=== PATIENT | female | born 1990 | race Hispanic/Latino ===

== ENCOUNTER → 2018-11-06 | Outpatient (CLI) | payer MEDICAID | END | disposition home or self-care (01) | LOC: OIH 09:30 | PROVIDERS: ATTEND Internal Medicine | DX: R76.11 Nonspecific reaction to tuberculin skin test without active tuberculosis (principal) | CPT/HCPCS: 71046 ==

== ENCOUNTER → 2020-05-30 | Outpatient (CLI) | payer MEDICAID | END | disposition home or self-care (01) | LOC: OIH 14:35 | PROVIDERS: ATTEND Internal Medicine | DX: M54.12 Radiculopathy, cervical region (principal); Z92.89 Personal history of other medical treatment | CPT/HCPCS: 71046; 72070 ==

== ENCOUNTER → 2025-03-18 | Outpatient (CLI) | payer OTHER ==
--- NOTE | 2025-03-19 12:20 | HMCIMG ---
EXAM: CT Cardiac calcium scoring. CLINICAL HISTORY: CAD screening. TECHNIQUE: Thin collimated axial CT cardiac images were obtained. A CT scan is done according to ALARA (As Low As Reasonably Achievable). CONTRAST: None. COMPARISON: None provided. FINDINGS: Calcium Score: VESSEL Number of lesions Volume mm3 Equi. Mass/mg Calcium score LM 0 00.00 00.00 00.00 LAD 0 00.00 00.00 00.00 LCX 0 00.00 00.00 00.00 RCA 0 00.00 00.00 00.00 Total 0 00.00 00.00 00.00 IMPRESSION: The calcium score is 0. This places the patient 0th percentile in comparison to a group of patients asymptomatic for coronary artery disease with the same age and gender. This means that 0 % of females aged <40 have a calcium score that is lower than the patient's /Jeannette
== END | disposition home or self-care (01) ==
LOC: RAH 11:22
PROVIDERS: ATTEND Internal Medicine
DX: Z13.6 Encounter for screening for cardiovascular disorders (principal); I25.10 Atherosclerotic heart disease of native coronary artery without angina pectoris
CPT/HCPCS: 75571